=== PATIENT | female | born 1960 | race Caucasian/White ===

== ENCOUNTER 2017-06-27 14:20 | Emergency (ER) | payer MEDICAID ==
[2017-06-27 18:17] LABS: BILIRUBIN,URINE NEGATIVE (NEGATIVE)
[2017-06-27 18:20] LABS: UA w/ MICROSCOPIC CHARGE YES
[2017-06-27 18:24] LABS: BASOPHILS % (AUTO) 0.3 %; EOSINOPHILS # (AUTO) 0.2 10^3/uL (0.0-0.7); EOSINOPHILS % (AUTO) 4.3 %; HCT - HEMATOCRIT 40.8 % (37.0-47.0); HGB - HEMOGLOBIN 13.7 g/dL (12.0-16.0); LYMPHOCYTES # (AUTO) 1.5 10^3/uL (1.5-3.5); LYMPHOCYTES % (AUTO) 29.7 %; MEAN CORPUSCULAR HEMOGLOBIN 30.8 pg (27.0-31.0); MEAN CORPUSCULAR HGB CONC 33.5 g/dL (32.0-36.0); MEAN PLATELET VOLUME 7.8 fL (7.9-10.8); MONOCYTES # (AUTO) 0.2 10^3/uL (0.0-1.0); MONOCYTES % (AUTO) 4.9 %; NEUTROPHILS % (AUTO) 60.8 %; RED BLOOD COUNT 4.43 10^6/uL (4.20-5.40); RED CELL DISTRIBUTION WIDTH 13.3 % (12.0-15.0)
[2017-06-27 18:33] LABS: UR CULTURE IF IND NOT INDICATED
[2017-06-27] MEDS ORDERED: SODIUM CHLORIDE 0.9% 1,000 ML IV ONE (19:19)
[2017-06-27] MEDS ORDERED: ONDANSETRON 4 MG/2 ML VIAL IVP STA (19:19)
[2017-06-27] MEDS ORDERED: KETOROLAC 60 MG/2 ML VIAL IVP STA (19:19)
[2017-06-27] MEDS ORDERED: KETOROLAC 30 MG/ML VIAL ONE (19:32)
[2017-06-27] MEDS ORDERED: ONDANSETRON 4 MG/2 ML VIAL ONE (19:32)
[2017-06-27 19:56] LABS: ALBUMIN/GLOBULIN RATIO 1.2 (1.0-2.2); BILIRUBIN,TOTAL 0.9 mg/dL (0.2-1.0); CALCIUM 10.7 mg/dL (8.5-10.3); CREATININE 0.8 mg/dL (0.4-1.0); POTASSIUM 4.1 mmol/L (3.5-5.0); TOTAL PROTEIN 8.1 g/dL (6.7-8.2)
[2017-06-27] MEDS ORDERED: IOPAMIDOL-300 100 ML VIAL IVP ONE (20:53)
--- NOTE | 2017-06-27 21:18 | CT Preliminary Report ---
Exam: CT Abdomen/Pelvis W/ IMPRESSION: 1. Anterior abdominal wall hernia with prominent bowel involvement, but no definite obstruction at th is time. 2. Bilateral inguinal hernias with fat involvement only. 3. Other chronic or incidental findings. [facility] SITE ID: [id number]
--- NOTE | 2017-06-27 21:21 | CT Report ---
EXAM: CT ABDOMEN AND PELVIS EXAM DATE: 06/27/2017 08:41 PM. CLINICAL HISTORY: Lower abd. pain., left right. COMPARISONS: 05/03/2012. TECHNIQUE: Routine helical CT imaging was performed through the abdomen and pelvis. IV contrast: 100 cc Isovue-300. Enteric contrast: No. Reconstructions: Coronal and sagittal. In accordance with CT protocol optimization, one or more of the following dose reduction techniques w ere utilized for this exam: automated exposure control, adjustment of mA and/or KV based on patient s ize, or use of iterative reconstructive technique. FINDINGS: Lung Bases: Unremarkable. Liver: Small calcified granuloma. Otherwise unremarkable. Gallbladder/Bile Ducts: Unremarkable. Spleen: Calcified granulomata. Small accessory spleen. Otherwise unremarkable. Pancreas: Diffuse fatty infiltration. Adrenal Glands: Bilateral adrenal adenomata. Kidneys: Normal. No masses or hydronephrosis. Peritoneal Cavity/Bowel: Anterior abdominal wall hernia in the midline with opening measuring about 6 .7 cm and hernia sac measuring about 12 x 7 cm. Multiple loops of bowel measure the hernia, but no di lation or other evidence of complication at this time. Postoperative changes. No free fluid, free air , or lymphadenopathy. The appendix is well visualized and normal. Pelvic Organs: Normal. The bladder and visualized pelvic organs are within normal limits. Vasculature: No aneurysms or other significant abnormality. Bones: Transitional vertebra with bilateral pseudarthrosis. Other: Bilateral small inguinal hernias with fat involvement only. IMPRESSION: 1. Anterior abdominal wall hernia with prominent bowel involvement, but no definite obstruction at th is time. 2. Bilateral inguinal hernias with fat involvement only. 3. Other chronic or incidental findings. [facility] Referring Provider Line: [phone] SITE ID: [id number]
--- NOTE | 2017-06-27 21:38 | ED Physician Documentation ---
PD HPI ABD PAIN - Stated complaint Stated Complaint: FEMALE - Chief complaint Chief Complaint: Abd Pain - History obtained from History obtained from: Patient - History of Present Illness Timing - onset: How many days ago (several) Timing - details: Waxing and waning Associated symptoms: Fever (Intermittently for one week.), Nausea (mild), Constipation. No: Vomiting, Diarrhea, Dysuria Similar symptoms before: Has not had sx before - Additional information Additional information: The patient is a 56-year-old female who presents stating she thinks her uterus fell out. She states her uterus prolapsed 3 days ago, but she pushed it back up into place, but then today it fell out completely. She brought to the emergency department with her a mass wrapped in a towel that she shows me. She reports having mild lower abdominal pain that has been waxing and waning. She reports fever intermittently for the past week. She reports mild nausea, without vomiting or diarrhea. She has had constipation for the past 2 weeks, but did have a bowel movement today. She denies history of similar symptoms in the past. Her past surgical history is significant for ventral hernia repairs 3. Review of Systems Constitutional: reports: Fever (Intermittently for the past week.) Nose: denies: Congestion Throat: denies: Sore throat Cardiac: denies: Chest pain / pressure Respiratory: denies: Dyspnea, Cough GI: reports: Abdominal Pain, Nausea (mild), Constipation. denies: Vomiting : reports: LMP (postmenopausal). denies: Dysuria Skin: denies: Rash Musculoskeletal: reports: Back pain (chronic mild low back pain) Neurologic: denies: Focal weakness, Syncope, Headache PD PAST MEDICAL HISTORY - Past Medical History Past Medical History: Yes Cardiovascular: None Respiratory: None Neuro: None Endocrine/Autoimmune: None Psych: Depression, Anxiety - Past Surgical History Past Surgical History: Yes General: Other (Ventral hernia repair 3) - Present Medications Home Medications: Ambulatory Orders Medication Instructions Recorded Confirmed HYDROcod/ACETAM 5/325 [Lolo 5/325] 1 - 2 ea PO Q6H PRN #15 tablet 06/27/17 - Allergies Allergies/Adverse Reactions: Allergies Allergy/AdvReac Type Severity Reaction Status Date / Time No Known Drug Allergies Allergy Verified 11/28/14 13:30 - Social History Does the pt smoke?: No Smoking Status: Never smoker Does the pt have substance abuse?: No - POLST Patient has POLST: No PD ED PE NORMAL - Vitals Vital signs reviewed: Yes (Mild hypertension initially.) - General General: Alert and oriented X 3, Other (obese) - HEENT HEENT: Atraumatic, Pharynx benign - Neck Neck: No adenopathy, No JVD - Cardiac Cardiac: RRR, No murmur - Respiratory Respiratory: No respiratory distress, Clear bilaterally - Abdomen Abdomen: Normal bowel sounds, Soft, Non tender - Female Female : Entry Level Paralegal present - Back Back: No CVA TTP - Derm Derm: No rash - Extremities Extremities: No calf tenderness / cord - Neuro Neuro: Alert and oriented X 3, No motor deficit, Normal speech Results - Vitals Vitals: Oxygen O2 Source Room air - Labs Labs: Laboratory Tests 06/27/17 06/27/17 06/27/17 18:00 18:15 18:15 WBC 5.0 RBC 4.43 Hgb 13.7 Hct 40.8 MCV 92.0 MCH 30.8 MCHC 33.5 RDW 13.3 Plt Count 190 MPV 7.8 L Neut # 3.0 Lymph # 1.5 [place] # 0.2 Eos # 0.2 Baso # 0.0 Absolute Nucleated RBC 0.00 Nucleated RBCs 0.0 Sodium 138 Potassium 4.1 Chloride 107 Carbon Dioxide 26 Anion Gap 5.0 L BUN 17 Creatinine 0.8 Estimated GFR (MDRD) 75 L Glucose 102 H Calcium 10.7 H Total Bilirubin 0.9 AST 28 ALT 25 Alkaline Phosphatase 70 Total Protein 8.1 Albumin 4.4 Globulin 3.7 Albumin/Globulin Ratio 1.2 Lipase 20 L Urine Color YELLOW Urine Clarity SL. CLOUDY Urine pH 7.0 Ur Specific [place] 1.020 Urine Protein NEGATIVE Urine Glucose (UA) NEGATIVE Urine Ketones NEGATIVE Urine Occult Blood MODERATE H Urine Nitrite NEGATIVE Urine Bilirubin NEGATIVE Urine Urobilinogen 1 (NORMAL) Ur Leukocyte Esterase NEGATIVE Urine RBC 11-25 H Urine WBC 6-10 H Ur Squamous Epith Cells MANY Squamous H Urine Bacteria Few Ur Microscopic Review INDICATED Urine Culture Comments NOT INDICATED - Rads (name of study) CT abd/pelvis w/ Radiology: Prelim report reviewed, EMP read contemporaneously, See rad report ( Anterior abdominal wall hernia with prominent bowel involvement, but no definite obstruction at this time. Bilateral inguinal hernias with fat involvement only. Other chronic or incidental findings.) PD MEDICAL DECISION MAKING - ED course Complexity details: reviewed results, re-evaluated patient, considered differential, d/w patient ED course: The patient's presentation is significant for passage of a large hemorrhagic uterine coagulum. Pelvic exam reveals no ongoing vaginal bleeding, and her CBC is normal. Urinalysis is negative. CT scan of the abdomen and pelvis reveals a large ventral hernia with bowel involvement, but without obstruction. The CT scan also reveals bilateral inguinal hernias with fat involvement. Treatment in the emergency department included administration of ketorolac 30 mg IV, and Zofran 4 mg IV. She is being discharged with prescription for Vicodin, 15 tablets. I discussed with her the results of her workup, the importance of outpatient follow-up, as well as potentially worrisome signs or symptoms that should prompt reevaluation in the emergency department. Departure - Departure Disposition: 01 Home, Self Care Clinical Impression: Vagina bleeding Abdominal pain Qualifiers: Abdominal location: lower abdomen, unspecified Qualified Code(s): R10.30 - Lower abdominal pain, unspecified Ventral hernia Qualifiers: Obstruction and gangrene presence: without obstruction or gangrene Qualified Code(s): K43.9 - Ventral hernia without obstruction or gangrene Condition: Stable Instructions: ED Bleed Irregular Vaginal, ED Hernia Inguinal Prescriptions: HYDROcod/ACETAM 5/325 [Lolo 5/325] 1 - 2 ea PO Q6H PRN #15 tablet PRN Reason: Pain Comments: Drink plenty of fluids. You can use Vicodin as prescribed if needed for pain. Follow-up with your primary physician within 1-2 weeks. Call to schedule appointment. Consider follow-up with a tool repairer. Return to the emergency department if you develop increasing vaginal bleeding, increasing abdominal pain, or otherwise worsening symptoms. Discharge Date/Time: 06/27/17 21:56
[2017-06-27 21:55] VITALS: BP 141/69
== END 2017-06-27 21:56 | disposition home or self-care (01) ==
LOC: ED 14:20
DX: N93.9 Abnormal uterine and vaginal bleeding, unspecified (principal); R10.30 Lower abdominal pain, unspecified; K43.9 Ventral hernia without obstruction or gangrene; K40.20 Bilateral inguinal hernia, without obstruction or gangrene, not specified as recurrent
CPT/HCPCS: 36415; 74177; 80053; 81001; 83690; 85025; 96361; 96374; 96375; 99283; 99284; Q9967; 81003; 87086

== ENCOUNTER 2017-09-11 12:58 | Outpatient (CLI) | payer MEDICAID | END 2017-09-11 12:59 | disposition home or self-care (01) | LOC: DI 12:58 | PROVIDERS: ATTEND Family Medicine | DX: Z53.9 Procedure and treatment not carried out, unspecified reason (principal) ==

== ENCOUNTER 2018-01-01 14:13 | Outpatient (CLI) | payer MEDICAID ==
--- NOTE | 2018-01-01 16:42 | Ultrasound Report ---
DATE OF SERVICE: 01/01/2018 ULTRASOUND OF RIGHT BREAST: 01/01/2018 CLINICAL INDICATION: Palpable abnormality. TECHNIQUE: Real-time scanning was performed with practice representative static images obtained. FINDINGS: Ultrasound of the palpable abnormality identified by the patient in the right axilla and the 4 o'clock position of the right breast was performed. Unremarkable parenchymal lobules are present. No discrete solid or cystic mass is identified. No sonographically suspicious findings are seen. IMPRESSION: NEGATIVE EXAMINATION. RECOMMENDATION: ROUTINE ANNUAL SCREENING UNLESS OTHERWISE CLINICALLY INDICATED. BIRADS CATEGORY 1-NEGATIVE. TD: 01/01/2018 16:41
--- NOTE | 2018-01-01 16:52 | Mammography Report ---
DATE OF SERVICE: 01/01/2018 DIGITAL DIAGNOSTIC BILATERAL MAMMOGRAM: 01/01/2018 CLINICAL INDICATION: Palpable abnormality right breast. This is the patient's baseline mammogram. TECHNIQUE: Bilateral CC and MLO views, right true and laterally exaggerated craniocaudal views. At the time of the mammogram, the patient only identified a palpable abnormality in the right axilla, which is where the marker was placed. The patient did not mention the palpable abnormality at the 4 o'clock position of the right breast until the subsequent ultrasound of the same day. FINDINGS: The breasts demonstrate scattered fibroglandular densities bilaterally. Intramammary lymph nodes are present. No suspicious masses, clustered microcalcifications, or regions of architectural distortion are identified. Specifically, no mammographic abnormality is appreciated in the right axillary tail or at the 4 o'clock position of the right breast. Please also refer to right breast ultrasound of the same day. IMPRESSION: BENIGN FINDINGS. RECOMMENDATION: ROUTINE ANNUAL SCREENING UNLESS OTHERWISE CLINICALLY INDICATED. BIRADS CATEGORY 2-BENIGN FINDINGS. STANDARD QUALIFYING STATEMENTS: 1. This examination was reviewed with the aid of Computer-Aided Detection (CAD). 2. A negative or benign imaging report should not delay biopsy if clinically suspicious findings are present. Consider surgical consultation if warranted. More than 5% of cancers are not identified by imaging. 3. Dense breasts may obscure an underlying neoplasm. TD: 01/01/2018 16:51
== END 2018-01-01 14:14 | disposition home or self-care (01) ==
LOC: DI 14:13
PROVIDERS: ATTEND Family Medicine
DX: N63.11 Unspecified lump in the right breast, upper outer quadrant (principal)
CPT/HCPCS: 76642; 77066

== ENCOUNTER 2021-08-17 10:42 | Emergency (ER) | payer MEDICAID ==
--- NOTE | 2021-08-17 11:23 | ED Physician Documentation ---
PD HPI ABD PAIN - Stated complaint Stated Complaint: WOUND ON ABD - Chief complaint Chief Complaint: Abd Pain - History obtained from History obtained from: Patient - Additional information Additional information: 60-year-old woman with history of complicated ventral hernia repairs x4 has had an active hernia for a year or so but has not been able to see a surgeon due to Covid. Now with a wound on the anterior abdominal wall with drainage for a week. No vomiting or abnormal bowel movements. No fevers. Review of Systems Ten Systems: 10 systems reviewed and negative Constitutional: reports: Reviewed and negative Cardiac: reports: Reviewed and negative Respiratory: reports: Reviewed and negative PD PAST MEDICAL HISTORY - Past Medical History Cardiovascular: None Respiratory: None Endocrine/Autoimmune: None Psych: Depression, Anxiety - Past Surgical History Past Surgical History: Yes General: Other (Ventral hernia repair 3) - Present Medications Home Medications: Ambulatory Orders Medication Instructions Recorded Confirmed Amox/Clav 875/125 [Augmentin] 1 each PO Q12H #20 tablet 08/17/21 Bacitracin Zinc Oint 1 applic TOP BID #1 gm 08/17/21 - Allergies Allergies/Adverse Reactions: Allergies Allergy/AdvReac Type Severity Reaction Status Date / Time No Known Drug Allergies Allergy Verified 08/17/21 10:57 - Social History Does the pt smoke?: No Smoking Status: Never smoker Does the pt have substance abuse?: No - POLST Patient has POLST: No PD ED PE NORMAL - Vitals Vital signs reviewed: Yes - General General: Alert and oriented X 3, No acute distress - HEENT HEENT: PERRL, EOMI - Neck Neck: Supple, no meningeal sign, No bony TTP - Cardiac Cardiac: RRR, No murmur - Respiratory Respiratory: No respiratory distress, Clear bilaterally - Abdomen Abdomen: Other (Somewhat distended abdomen without diffuse tenderness. She has a area of skin breakdown mid anterior abdominal wall measuring about 4 cm in diameter. There is material in the wound, unclear if it represents granulation tissue or subcutaneous fat or something else.) - Back Back: No CVA TTP, No spinal TTP - Derm Derm: Normal color, Warm and dry - Extremities Extremities: No edema, No calf tenderness / cord - Neuro Neuro: Alert and oriented X 3, Normal speech Results - Vitals Vitals: Vital Signs - 24 hr 08/17/21 08/17/21 08/17/21 10:53 11:39 13:03 Temperature 36.9 C Heart Rate 93 70 64 Respiratory 20 13 15 Rate Blood Pressure 152/77 H 118/74 117/63 O2 Saturation 99 100 100 08/17/21 13:43 Temperature 36.2 C L Heart Rate 76 Respiratory 14 Rate Blood Pressure 125/84 H O2 Saturation 99 Oxygen O2 Source Room air - Labs Labs: Laboratory Tests 08/17/21 08/17/21 08/17/21 11:31 11:31 11:31 WBC 3.6 L RBC 4.59 Hgb 14.0 Hct 43.6 MCV 95.0 MCH 30.5 MCHC 32.1 RDW 13.4 Plt Count 175 MPV 9.7 Neut # (Auto) 2.3 Lymph # (Auto) 1.0 L [place] # (Auto) 0.2 Eos # (Auto) 0.1 Baso # (Auto) 0.0 Absolute Nucleated RBC 0.00 Nucleated RBC % 0.0 PT 12.2 INR 1.1 Sodium 139 Potassium 3.8 Chloride 105 Carbon Dioxide 25 Anion Gap 9.0 BUN 23 H Creatinine 0.8 Estimated GFR (MDRD) 74 L Glucose 114 H Calcium 10.4 H - Rads (name of study) CT A/P Radiology: EMP read contemporaneously PD MEDICAL DECISION MAKING - ED course ED course: 60-year-old woman with complicated ventral hernia that is not with signs of infarction or obstruction but does have some skin breakdown. CT done and labs. Case discussed by phone with Dr. Osborne our on-call surgeon who viewed the images as well and will see her in follow-up but plans to refer her to a tertiary center for definitive repair. Patient had ancillary complaints of dental pain and facial swelling from the right mandible. On exam there she does have generally poor dentition with a large cavity on the right mandible with tenderness but no facial swelling but she does have right reactive right cervical adenopathy and I will prescribe some antibiotics for that. Departure - Departure Disposition: 01 Home, Self Care Clinical Impression: Ventral hernia, Pain, dental Condition: Good Record reviewed to determine appropriate education?: Yes Instructions: ED Dental Abscess Facial Cellulitis Follow-Up: Barry Osborne MD [Provider Admit Priv/Credential] - Prescriptions: Amox/Clav 875/125 [Augmentin] 1 each PO Q12H #20 tablet Bacitracin Zinc Oint 1 applic TOP BID #1 gm Comments: Follow-up with Dr. Osborne, call his office for an appointment. He will "quarterback" referral to a tertiary center for hernia repair. Also important to follow-up with your dentist as soon as possible. Prescription sent electronically to [facility] pharmacy. For the wound on your abdomen, you can wash with soap and water and then apply the bacitracin ointment and a nonstick dressing. Discharge Date/Time: 08/17/21 13:49
[2021-08-17] MEDS ORDERED: IOPAMIDOL-300 100 ML VIAL ONE (11:32)
[2021-08-17] MEDS ORDERED: IOVERSOL 320 50 ML VIAL ONE (11:32)
[2021-08-17 11:38] LABS: BASOPHILS % (AUTO) 0.3 %; EOSINOPHILS # (AUTO) 0.1 10^3/uL (0.0-0.7); EOSINOPHILS % (AUTO) 2.5 %; HCT - HEMATOCRIT 43.6 % (37.0-47.0); LYMPHOCYTES % (AUTO) 28.3 %; MEAN CORPUSCULAR HEMOGLOBIN 30.5 pg (27.0-31.0); MEAN CORPUSCULAR HGB CONC 32.1 g/dL (32.0-36.0); MEAN PLATELET VOLUME 9.7 fL (7.9-10.8); MONOCYTES # (AUTO) 0.2 10^3/uL (0.0-1.0); MONOCYTES % (AUTO) 4.4 %; NEUTROPHILS # (AUTO) 2.3 10^3/uL (1.5-6.6); NEUTROPHILS % (AUTO) 64.2 %; PLT - PLATELET COUNT 175 10^3/uL (130-450); RED BLOOD COUNT 4.59 10^6/uL (4.20-5.40); RED CELL DISTRIBUTION WIDTH 13.4 % (12.0-15.0); WHITE BLOOD COUNT 3.6 x10^3/uL (4.8-10.8)
[2021-08-17 11:44] LABS: INR 1.1 (0.8-1.2); PT - PROTHROMBIN TIME 12.2 secs (9.9-12.6)
[2021-08-17 11:46] LABS: CALCIUM 10.4 mg/dL (8.5-10.3); CREATININE 0.8 mg/dL (0.4-1.0); POTASSIUM 3.8 mmol/L (3.5-5.0)
[2021-08-17] MEDS ORDERED: IOVERSOL 320 50 ML VIAL PO ONE (13:23)
[2021-08-17] MEDS ORDERED: IOPAMIDOL-300 100 ML VIAL IVP ONE (13:23)
[2021-08-17 13:46] VITALS: BP 125/84
--- NOTE | 2021-08-17 13:47 | CT Report ---
PROCEDURE: Abdomen/Pelvis W INDICATIONS: IV and PO, abd pain, ruptured hernia CONTRAST: IV CONTRAST: Isovue 300 ml: 100 PO CONTRAST: Optiray 320 ml50 TECHNIQUE: After the administration of contrast, 5 mm thick sections acquired from the diaphragms to the sym physis. 5 mm thick coronal and sagittal reformats were acquired. For radiation dose reduction, the following was used: automated exposure control, adjustment of mA and/or kV according to patient size . COMPARISON: None. FINDINGS: Image quality: Excellent. ABDOMEN: Lung bases: Lung bases are clear. Heart size is normal. Solid organs: Spleen is enlarged at 14.1 cm 22 cm, previously 13 cm.. Small splenic granuloma remains unchanged. Hepatic fatty infiltration and small hepatic calcified granuloma noted, stable. Gallbladd er unremarkable Biliary system is non dilated. Pancreas enhances normally. Low-density bilateral ad renal nodules again noted, stable from the prior. Kidneys demonstrate normal size and enhancement, w ithout hydronephrosis. Peritoneum and bowel: Large ventral hernia present containing bowel has increased in size from the p rior exam. Ventral hernia sac now measures 22 cm in diameter, previously 13 cm. Neck of the hernia me asures 6.7 cm in diameter. There is evidence of prior hernia repair just inferior to the current gary ia with surgical clips, stable from the prior. Bowel loops demonstrate normal wall thickness and amber luke. No free fluid or air. Nodes and vessels: No retroperitoneal or mesenteric adenopathy by size criteria. Aorta and inferior vena cava are normal in size. Atherosclerotic vascular calcification noted involving the aorta and splenic loraine. Miscellaneous: No ventral hernias. PELVIS: Genitourinary: Bladder wall thickness is normal. Surgical clips noted associated with both fallopia n tubes, stable. Miscellaneous: Tiny bilateral inguinal hernias containing fat without bowel involvement, stable from the prior Bones: No suspicious bony lesions. No vertebral body compression fractures. Vertebral transitional anatomy again noted. IMPRESSION: 1. Large ventral hernia has increased in size compared to the prior exam now measuring 22 cm, previou sly 13 cm. 2. Stable bilateral adrenal adenomas, hepatic fatty infiltration and small bilateral inguinal hernias containing fat without bowel involvement. Reviewed by: Morteza Newby MD on 08/17/2021 12:45 PM [facility] Approved by: Morteza Newby MD on 08/17/2021 12:45 PM AKDT Station ID: [id number]
== END 2021-08-17 13:49 | disposition home or self-care (01) ==
LOC: ED 10:42
DX: K43.9 Ventral hernia without obstruction or gangrene (principal); K08.89 Other specified disorders of teeth and supporting structures
CPT/HCPCS: 36415; 74177; 80048; 85025; 85610; 99283; 99284; Q9967

== ENCOUNTER 2022-11-08 09:36 | Emergency (ER) | payer MEDICAID ==
[2022-11-08] MEDS ORDERED: ONDANSETRON 4 MG/2 ML VIAL IVP STA ×2 (10:01→13:01)
[2022-11-08] MEDS ORDERED: SODIUM CHLORIDE 0.9% 1,000 ML IV STA ×2 (10:01→13:29)
[2022-11-08] MEDS ORDERED: MORPHINE 2 MG/ML CARPUJECT IVP STA ×2 (10:01→13:01)
[2022-11-08] MEDS ORDERED: iohexoL-300 100 ML VIAL ONE (10:09)
[2022-11-08 10:21] LABS: BASOPHILS % (AUTO) 0.3 %; EOSINOPHILS # (AUTO) 0.1 10^3/uL (0.0-0.7); EOSINOPHILS % (AUTO) 0.7 %; HCT - HEMATOCRIT 47.7 % (37.0-47.0); HGB - HEMOGLOBIN 15.2 g/dL (12.0-16.0); LYMPHOCYTES # (AUTO) 0.7 10^3/uL (1.5-3.5); LYMPHOCYTES % (AUTO) 10.5 %; MEAN CORPUSCULAR HEMOGLOBIN 29.3 pg (27.0-31.0); MEAN CORPUSCULAR HGB CONC 31.9 g/dL (32.0-36.0); MEAN CORPUSCULAR VOLUME 92.1 fL (81.0-99.0); MEAN PLATELET VOLUME 9.6 fL (7.9-10.8); MONOCYTES # (AUTO) 0.2 10^3/uL (0.0-1.0); MONOCYTES % (AUTO) 2.2 %; NEUTROPHILS # (AUTO) 5.8 10^3/uL (1.5-6.6); NEUTROPHILS % (AUTO) 86.2 %; PLT - PLATELET COUNT 200 10^3/uL (130-450); RED BLOOD COUNT 5.18 10^6/uL (4.20-5.40); RED CELL DISTRIBUTION WIDTH 13.3 % (12.0-15.0); WHITE BLOOD COUNT 6.8 x10^3/uL (4.8-10.8)
--- NOTE | 2022-11-08 10:33 | ED Physician Documentation ---
PD HPI ABD PAIN - Stated complaint Stated Complaint: N/V, ABD/BACK PX - Chief complaint Chief Complaint: Abd Pain - History obtained from History obtained from: Patient - Additional information Additional information: Patient is a 62-year-old female with a history of multiple prior hernia repairs and small bowel obstructions presenting for evaluation of abdominal pain and back pain that started yesterday evening with associated nausea and vomiting.The pain is localized to the area of the hernia and upper abdomen. She reports that the hernia is always present and never fully reduces. She does have a redness to the bottom portion of the hernia which she has been trying to treat at home.Her last bowel movement was yesterday and was a small amount. She is not passing gas. She has required Surgeries for prior small bowel obstructions. She reports those were at [facility].She does not otherwise take medications including no blood thinners. She denies recently being ill. Taken from Dr. Armstrong's note 12/04/21 ( Surgery) 2007: The patient underwent SBR and mesh hernia repair for an umbilical strangulated hernia at [facility] in [place], [place]. 2008: Mesh was recalled, patient had the mesh removed. [id number]: Hernia recurred 05/04/2012: Presented unplanned to [facility] in [place] with incarcerated ventral hernia and underwent: reduction of incarcerated ventral hernia, lysis of adhesions, temporary, abdominal closure with VAC pack. 05/07/2012: reopening of laparotomy, exploratory laparotomy, component separation of abdominal wall musculature for primary fascial repair of abdominal wall by Dr. Grande at [facility] 2020: Patient is unsure of when the hernia recurred, but has been present for many years. Small wound overlying ventral hernia has been present for about a year and is slowly growing, now the size of a half-dollar. 08/17/21: Patient presented to [facility] ED with worsening abdominal pain, CT imaging showing recurrence of ventral hernia, w/o evidence obstruction. 09/07/21: Evaluated by Dr. Barry Osborne, determined case required management at [facility], referred to [facility] General Surgery Review of Systems Constitutional: denies: Fever Cardiac: denies: Chest pain / pressure Respiratory: denies: Dyspnea GI: reports: Abdominal Pain, Nausea, Vomiting. denies: Diarrhea : denies: Dysuria Musculoskeletal: reports: Back pain Neurologic: denies: Headache PD PAST MEDICAL HISTORY - Past Medical History Past Medical History: Yes Cardiovascular: None Respiratory: None Neuro: None Endocrine/Autoimmune: None GI: Other TANK OPERATOR: None : None HEENT: None Psych: Depression, Anxiety Musculoskeletal: None Derm: Other - Past Surgical History Past Surgical History: Yes General: Other - Present Medications Home Medications: Ambulatory Orders Medication Instructions Recorded Confirmed Amox/Clav 875/125 [Augmentin] 1 each PO Q12H #20 tablet 08/17/21 Bacitracin Zinc Oint 1 applic TOP BID #1 gm 08/17/21 Bacitracin Zinc Oint 2 applic TOP BID #1 gm 07/21/22 Magnesium Citrate 147 ml PO Q8H PRN #296 ml 07/21/22 - Allergies Allergies/Adverse Reactions: Allergies Allergy/AdvReac Type Severity Reaction Status Date / Time No Known Drug Allergies Allergy Verified 07/21/22 09:12 - Social History Does the pt smoke?: No Smoking Status: Never smoker Does the pt drink ETOH?: No Does the pt have substance abuse?: No - Immunizations Immunizations are current?: Yes - POLST Patient has POLST: No PD ED PE NORMAL - General General: Alert and oriented X 3, No acute distress, Well developed/nourished - HEENT HEENT: Atraumatic, Moist mucous membranes, Pharynx benign - Neck Neck: Supple, no meningeal sign - Cardiac Cardiac: RRR, No murmur - Respiratory Respiratory: No respiratory distress, Clear bilaterally - Abdomen Abdomen: Soft, Other (Large ventral wall hernia with tenderness,pt does not tolerate attempts at reducing the hernia due to pain; Redness present to the Skin folds below the hernia area). No: Normal bowel sounds (Hypoactive), Non tender - Derm Derm: Warm and dry Results - Vitals Vitals: Vital Signs - 24 hr 11/08/22 11/08/22 11/08/22 09:50 09:53 11:53 Temperature 37 C Heart Rate 77 78 88 Respiratory 16 Rate Blood Pressure 119/107 H 166/92 H O2 Saturation 99 96 97 11/08/22 11/08/22 13:00 15:00 Temperature 36.6 C 36.6 C Heart Rate 71 63 Respiratory 16 16 Rate Blood Pressure 128/71 115/73 O2 Saturation 100 100 Oxygen O2 Source Room air - EKG (time done) 1006 Rate: Rate (enter#) (73) Rhythm: NSR Intervals: No: Prolonged QT Ischemia: No: ST elevation c/w ischemia - Labs Labs: Laboratory Tests 11/08/22 11/08/22 11/08/22 10:05 10:12 10:12 WBC 6.8 RBC 5.18 Hgb 15.2 Hct 47.7 H MCV 92.1 MCH 29.3 MCHC 31.9 L RDW 13.3 Plt Count 200 MPV 9.6 Neut # (Auto) 5.8 Lymph # (Auto) 0.7 L [place] # (Auto) 0.2 Eos # (Auto) 0.1 Baso # (Auto) 0.0 Absolute Nucleated RBC 0.00 Nucleated RBC % 0.0 Sodium 138 Potassium 4.0 Chloride 104 Carbon Dioxide 25 Anion Gap 9.0 BUN 17 Creatinine 0.8 Estimated GFR (MDRD) 73 L Glucose 130 H Lactic Acid Calcium 10.9 H Total Bilirubin 1.1 H AST 25 ALT 28 Alkaline Phosphatase 79 Total Protein 8.6 H Albumin 4.5 Globulin 4.1 Albumin/Globulin Ratio 1.1 Lipase 25 Nasal Adenovirus (PCR) NOT DETECTED Nasal B. parapertussis DNA (PCR) NOT DETECTED Nasal Coronavir 229E PCR NOT DETECTED Nasal Coronavir HKU1 PCR NOT DETECTED Nasal Coronavir NL63 PCR NOT DETECTED Nasal Coronavir OC43 PCR NOT DETECTED Nasal Enterovir/Rhinovir PCR NOT DETECTED Nasal Influenza B PCR NOT DETECTED Nasal Influenza A PCR NOT DETECTED Nasal Parainfluen 1 PCR NOT DETECTED Nasal Parainfluen 2 PCR NOT DETECTED Nasal Parainfluen 3 PCR NOT DETECTED Nasal Parainfluen 4 PCR NOT DETECTED Nasal RSV (PCR) NOT DETECTED Nasal B.pertussis DNA PCR NOT DETECTED Nasal C.pneumoniae (PCR) NOT DETECTED Hola Human Metapneumo PCR NOT DETECTED Nasal M.pneumoniae (PCR) NOT DETECTED Nasal SARS-CoV-2 (PCR) NOT DETECTED 11/08/22 10:12 WBC RBC Hgb Hct MCV MCH MCHC RDW Plt Count MPV Neut # (Auto) Lymph # (Auto) [place] # (Auto) Eos # (Auto) Baso # (Auto) Absolute Nucleated RBC Nucleated RBC % Sodium Potassium Chloride Carbon Dioxide Anion Gap BUN Creatinine Estimated GFR (MDRD) Glucose Lactic Acid 1.1 Calcium Total Bilirubin AST ALT Alkaline Phosphatase Total Protein Albumin Globulin Albumin/Globulin Ratio Lipase Nasal Adenovirus (PCR) Nasal B. parapertussis DNA (PCR) Nasal Coronavir 229E PCR Nasal Coronavir HKU1 PCR Nasal Coronavir NL63 PCR Nasal Coronavir OC43 PCR Nasal Enterovir/Rhinovir PCR Nasal Influenza B PCR Nasal Influenza A PCR Nasal Parainfluen 1 PCR Nasal Parainfluen 2 PCR Nasal Parainfluen 3 PCR Nasal Parainfluen 4 PCR Nasal RSV (PCR) Nasal B.pertussis DNA PCR Nasal C.pneumoniae (PCR) Hola Human Metapneumo PCR Nasal M.pneumoniae (PCR) Nasal SARS-CoV-2 (PCR) PD MEDICAL DECISION MAKING - ED course Complexity details: reviewed results, re-evaluated patient, d/w patient ED course: Patient presenting for evaluation of abdominal hernia with pain and vomiting. Vital signs are stable and labs are reviewed.Her hernia is soft but not Necessarily reducible. CT scan is concerning for small bowel obstruction. I did consult with general surgery who evaluated the patient. He does not feel that the hernia is incarcerated. He recommends treating her SBO nonoperatively at this time as she is a very complex surgical patient. He does recommend placing her on the wait list at [facility] in the event that she needs surgery is she would be a complicated surgical case that would not be appropriate for this facility. Patient will remain in the emergency department. I have spoken to the transfer center but have not heard back from general surgery yet. Patient signed out to oncoming provider at shift change. She will continue to board in the emergency department until a bed is available. 1330 - Dr. Chinchilla, General Surgery has seen the patient.She is a very complex patient and has had prior surgeries at [facility] In regards to her hernia. He does not feel that she would be a good surgical candidate to keep that would be. He recommends at this time and trying to manage her nonoperatively with nasogastric tube, IV fluids and n.p.o. However he does recommend trying to transfer the patient Because surgery here would be too complicated in this patient. Departure - Departure Disposition: 66 [facility] DC/Xfer Clinical Impression: SBO (small bowel obstruction), Ventral hernia Condition: Stable
[2022-11-08 10:37] LABS: ALBUMIN 4.5 g/dL (3.2-5.5); ALBUMIN/GLOBULIN RATIO 1.1 (1.0-2.2); BILIRUBIN,TOTAL 1.1 mg/dL (0.2-1.0); CALCIUM 10.9 mg/dL (8.5-10.3); CREATININE 0.8 mg/dL (0.4-1.0); TOTAL PROTEIN 8.6 g/dL (6.7-8.2)
[2022-11-08 11:15] LABS: CORONAVIRUS 229E-RESP PCR NOT DETECTED; CORONAVIRUS HKU1-RESP PCR NOT DETECTED
[2022-11-08 11:16] LABS: B. PARAPERTUSSIS- RESP PCR PAN NOT DETECTED; B. PERTUSSIS- RESP PCR PANEL NOT DETECTED; C. PNEUMONIAE- RESP PCR PANEL NOT DETECTED; CORONAVIRUS NL63-RESP PCR NOT DETECTED; CORONAVIRUS OC43-RESP PCR NOT DETECTED; HUMAN METAPNEUMOVIRUS NOT DETECTED; INFLUENZA A- RESP PCR PANEL NOT DETECTED; INFLUENZA B - RESP PCR PANEL NOT DETECTED; M. PNEUMONIAE- RESP PCR PANEL NOT DETECTED; PARAINFLUENZA VIRUS 1 NOT DETECTED; PARAINFLUENZA VIRUS 2 NOT DETECTED; PARAINFLUENZA VIRUS 3 NOT DETECTED; PARAINFLUENZA VIRUS 4 NOT DETECTED; RHINOVIRUS/ENTEROVIRUS NOT DETECTED; RSV- RESP PCR PANEL NOT DETECTED; SARS-CoV-2 -RESP PCR PANEL NOT DETECTED
--- NOTE | 2022-11-08 12:32 | CT Report ---
PROCEDURE: ABDOMEN/PELVIS W INDICATIONS: large ventral wall hernia/vomiting CONTRAST: 100ml Omnipaque 300 TECHNIQUE: After the administration of intravenous contrast, 5 mm thick sections acquired from the diaphragms to the symphysis. 5 mm thick coronal and sagittal reformats were acquired. For radiation dose reducti on, the following was used: automated exposure control, adjustment of mA and/or kV according to joseph ent size. COMPARISON: CT abdomen and pelvis 08/17/2021, 06/27/2017. FINDINGS: Image quality: Good. ABDOMEN: Lung bases: Lung bases are clear. Heart size is normal. Solid organs: Liver and spleen are normal in size and enhancement. Calcified granulomas. Gallbladde r is unremarkable. Biliary system is non dilated. Fatty atrophy of the pancreas.. Right adrenal nodu le measuring approximately 2.1 cm, (), similar to 2017. This most likely represents a benign tristen earle. There may be a small adenoma at the left adrenal gland versus adrenal thickening, similar. Kidn eys demonstrate normal size and enhancement, without hydronephrosis. Peritoneum and bowel: There are dilated loops of small bowel and air-fluid level within the ventral a bdominal wall hernia sac. No discrete transition point is identified. There is a small bowel to small bowel anastomosis. Other loops of small bowel are not dilated. The appendix is not identified. Cecum is malpositioned within the left aspect of the hernia sac. Nodes and vessels: No retroperitoneal or mesenteric adenopathy by size criteria. Aorta and inferior vena cava are normal in size. Miscellaneous: Large ventral midline abdominal wall hernia containing small bowel and colon. The gary ia neck measures 8 cm, (334). Overall the size of the large hernia is similar to 2020. PELVIS: Genitourinary: Bladder wall thickness is normal. Anteverted uterus. Tubal ligation. Miscellaneous: Small fat-containing inguinal hernias. No adenopathy. Bones: No suspicious bony lesions. No vertebral body compression fractures. IMPRESSION: Large ventral abdominal wall hernia containing small bowel and colon is similar in size. Dilated loops of small bowel within the hernia sac and a small bowel to small bowel anastomosis. Thi s is concerning for small bowel obstruction or partial obstruction. A discrete transition point is no t identified. No free fluid in the hernia sac. Reviewed by: Isaac Kraus MD on 11/08/2022 12:31 PM PST Approved by: Isaac Kraus MD on 11/08/2022 12:31 PM PST Station ID: [id number]
[2022-11-08] MEDS ORDERED: iohexoL-300 100 ML VIAL IVP ONE (12:54)
--- NOTE | 2022-11-08 14:00 | CONSULTATION NOTE ---
Surgery Consult - Consult Date Consult Date: 11/08/22 Requesting Provider: Dr. Migue Larson - Chief Complaint Chief Complaint: Ventral hernia with possible partial SBO - Home Meds/Allergies Allergies/Adverse Reactions: Allergies Allergy/AdvReac Type Severity Reaction Status Date / Time No Known Drug Allergies Allergy Verified 07/21/22 09:12 - Vital Signs Vital Signs: Last Vital Signs Temp 97.9 F 11/08/22 13:00 Pulse 71 11/08/22 13:00 Resp 16 11/08/22 13:00 BP 128/71 11/08/22 13:00 Pulse Ox 100 11/08/22 13:00 O2 Flow Rate Intake & Output: Intake & Output 11/05/22 11/06/22 11/07/22 11/08/22 23:59 23:59 23:59 23:59 Intake Total 1000 Balance 1000 - Lab Results Result Diagrams: 11/08/22 10:12 11/08/22 10:12 - Consultation Note Consultation Note: S: Anuradha Colon is a 62 year old female who presents to the ED with 24 hours of nausea, several episodes of emesis, and worsening abdominal pain. Her symptoms started two days ago. She has had similar symptoms in the past due to a large, complicated recurrent ventral hernia. She tells me that the hernia is always bulging through her abdominal wall and yesterday the bulge was much more tense than today but her nausea and vomiting persisted. Her last BM was yesterday. She is unaware of the passage of flatus today. She denies fevers or chills. Anuradha tells me she has had multiple surgical repairs of her ventral hernia, the first using mesh implantation followed by mesh explantation and at least two more primary repairs each of which recurred. She was seen several years ago at [facility] and told that she was not a candidate for an elective hernia repair until she lost weight which she has been unable to do. 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 Since that time she has been asymptomatic until two days ago although she has been evaluated in the clinic periodically for skin changes related to the macerated pannicular epidermis. She denies the use of home medications. She admits to 3-4 ventral hernia repairs, several of which were performed in [place]. She denies the use of home medications and has no allergies to medications. O: VSS, Afeb; Not tachycardic; AAO; Somewhat tearful when telling her past history. HEENT normal Lungs Clear Heart NSR Abd Large partially reducible ventral hernia that is not tender to palpation. Bowel sounds are present over the hernia and in the intra-abdominal cavity. On the inferior aspect of the hernia, the skin is erythematous with multiple small (<1 cm) superficial ulcerations. The skin is macerated and moist with seropurulent exudate. There is no evidence of full thickness skin erosion or fistula formation. Extremities Mild edema bilateral lower extremities. Labs: See above CT scan: Large midline ventral hernia sac that contains both small and large bowel. There are several loops of dilated small bowel in the hernia sac but otherwise the small bowel entering and leaving the hernia sac and within the abdominal cavity appears normal. An anastomotic staple line can be seen in one of the bowel segments within the hernia. Today's images appear similar to those images from last year except for the few segments of dilated small bowel within the hernia. Assessment: 1) Chronic complex ventral hernia with onset of abdominal pain and vomiting. The patient may have a partial small bowel obstruction or perhaps an ileus as there is no evidence of distended small bowel other than the short segment within the hernia sac. There is no clinical, CT, or lab evidence of ischemic bowel at this time. 2) Superobesity (BMI 46.5) Recommendation: 1) Unfortunately, our hospital is full and can not accept in-patients at this time. And given her complex hernia and morbid obesity,she would be best served in a tertiary care center in case her condition deteriorated such that emergency surgery would be required. We have requested that she be placed on a waiting list at /[facility] as they are also over-capacity and can not accept her in immediate transfer at this time. This patient will not do well if she goes home and therefore she will be boarded in our ED until that time that she either improves or a bed becomes available at a Tertiary Referral Center. I have discussed this with our ED staff and with the patient and there is agreement with this plan. While boarded in the ED, she should receive IV maintenance fluids, an NGT should be placed to LIS, IV Dilaudid or MS can be offered for pain control, and the skin maceration should be managed with antifungal powder and gauze to keep the epidermal folds . Depending upon her clinical response to these measures, a gastrografin contrast study may be requested. 2) Surgery will follow while she is boarded. Bryan Chinchilla MD General Surgery Service
[2022-11-08] MEDS ORDERED: NYSTATIN POWDER 15 GM TOP STA (14:57)
--- NOTE | 2022-11-08 15:44 | XRAY Report ---
PROCEDURE: Chest for Line Placement INDICATIONS: NG placement TECHNIQUE: One view of the chest was acquired. COMPARISON: CT abdomen and pelvis earlier today. FINDINGS: Surgical changes and devices: Enteric tube with the tip in the stomach. Lungs and pleura: No pleural effusions or pneumothorax. Lungs are clear. Mediastinum: Mediastinal contours appear normal. Heart size is normal. Bones and chest wall: No suspicious bony lesions. Overlying soft tissues appear unremarkable. IMPRESSION: Enteric tube with the tip in the stomach. No acute cardiopulmonary abnormality. Reviewed by: Isaac Kraus MD on 11/08/2022 3:42 PM PST Approved by: Isaac Kraus MD on 11/08/2022 3:42 PM PST Station ID: [id number]
[2022-11-08] MEDS ORDERED: ONDANSETRON 4 MG/2 ML VIAL IVP PRN (16:33)
[2022-11-08] MEDS ORDERED: MORPHINE 2 MG/ML CARPUJECT IVP PRN (16:34)
[2022-11-08] MEDS ORDERED: KETOROLAC 15 MG/ML VIAL IVP STA (20:39)
[2022-11-08] MEDS ORDERED: LORazepam 2 MG/ML VIAL IVP STA (20:39)
[2022-11-08] MEDS: D5.45NS W/20 MEQ KCL 1,000 ML IV SCH (20:48)
--- NOTE | 2022-11-08 22:37 | ED Physician Documentation ---
ED Addendum - Addendum Addendum: 11/08/22 22:36 D/w Dr. Elizalde, gen surgery . discussed concern for partial SBO - He is recommending against transfer, stating she has chronic ventral hernia and chronic pain related to this. He recommends to manage partial SBO here at [facility] via ng tube / bowel rest/ npo and reevaluate in morning for possible outpatient follow up. 11/09/22 06:00 plan to endorse to incoming daytime ED MD for further management and care
[2022-11-09 04:39] LABS: BASOPHILS % (AUTO) 0.2 %; EOSINOPHILS # (AUTO) 0.1 10^3/uL (0.0-0.7); EOSINOPHILS % (AUTO) 2.5 %; HCT - HEMATOCRIT 44.3 % (37.0-47.0); HGB - HEMOGLOBIN 13.7 g/dL (12.0-16.0); LYMPHOCYTES # (AUTO) 1.6 10^3/uL (1.5-3.5); LYMPHOCYTES % (AUTO) 33.1 %; MEAN CORPUSCULAR HEMOGLOBIN 29.3 pg (27.0-31.0); MEAN CORPUSCULAR HGB CONC 30.9 g/dL (32.0-36.0); MEAN CORPUSCULAR VOLUME 94.9 fL (81.0-99.0); MEAN PLATELET VOLUME 9.4 fL (7.9-10.8); MONOCYTES # (AUTO) 0.3 10^3/uL (0.0-1.0); MONOCYTES % (AUTO) 6.7 %; NEUTROPHILS # (AUTO) 2.8 10^3/uL (1.5-6.6); NEUTROPHILS % (AUTO) 57.3 %; PLT - PLATELET COUNT 190 10^3/uL (130-450); RED BLOOD COUNT 4.67 10^6/uL (4.20-5.40); RED CELL DISTRIBUTION WIDTH 13.6 % (12.0-15.0); WHITE BLOOD COUNT 4.8 x10^3/uL (4.8-10.8)
[2022-11-09 04:49] LABS: CALCIUM 9.9 mg/dL (8.5-10.3); CREATININE 0.9 mg/dL (0.4-1.0); POTASSIUM 4.1 mmol/L (3.5-5.0)
[2022-11-09] MEDS: D5.45NS W/20 MEQ KCL 1,000 ML IV SCH ×2 (05:08→13:16)
--- NOTE | 2022-11-09 07:26 | PROVIDER PROGRESS NOTE ---
Progress Note General Surgery Progress Note S: Comfortable; Still has abdominal discomfort but less; Claims to have passed a little flatus. No nausea or vomiting. Lying in bed watching videos on her mobile device. O: VSS, afeb; AAO; No tachycardia since admission NGT in nares; no output last night. Open and functional Lungs: Clear Heart: NSR Abdomen: Soft; VH soft and non tender. Can easily reduce most of the hernia but she has clinical evidence of loss of domain and it immediately recurs. Bowel sounds are present in the abdominal cavity and within the hernia sac. The lower epidermal erythema is being treated with anti-fungal powder and gauze. Labs: BMP - normal; WBC normal Assessment: 1) Chronic VH with possible SBO - It appears as if the obstruction is either partial and has started to resolve. 2) Pannicular dermal inflammation - ongoing treatment 3) Superobesity Recommendation: 1) Gastrografin contrast study this morning (I have ordered this study). If it demonstrates flow into colon, the NGT may be removed and the patient started on a clear liquid diet. 2) Once an in-patient bed becomes available, she can be admitted for continued care if still needed. Bryan Chinchilla MD General Surgery Service
[2022-11-09] MEDS ORDERED: DIATRIZOATE MEGLU/DIATRIZO SOD 30 ML BOTTLE PO ONE ×2 (07:32→08:55)
[2022-11-09] MEDS ORDERED: KETOROLAC 15 MG/ML VIAL IVP STA (08:40)
--- NOTE | 2022-11-09 08:45 | ED Physician Documentation ---
ED Addendum - Addendum Addendum: 11/09/22 08:43 Patient with partial bowel obstruction in the area of a large ventral hernia. Initial plan was to transfer the patient elsewhere since she is medically complicated. However report is the surgery at [facility] or outlying facility states the patient would be nonoperatively treated there. As such the focus of care was just nonoperative. Dr. Chinchilla was consulted and saw the patient. On rounds this morning Dr. Chinchilla stated he would order a Gastrografin study as the patient was having much less pain today. We may be able to discharge her if clinically improving later, once her movement through the gut has improved. The patient was a awake alert and conversant. She declined any opiate pain medicine. I did offer her another dose of Toradol. She had had some yesterday. She excepted that. 11/09/22 08:45
[2022-11-09] MEDS ORDERED: PANTOPRAZOLE 40 MG VIAL IVP SCH (09:00)
[2022-11-09 12:34] VITALS: BP 104/75
--- NOTE | 2022-11-09 13:04 | XRAY Report ---
PROCEDURE: SBFT Challenge Panel INDICATIONS: OBSTRUCTION COMPARISON: CT of abdomen and pelvis dated 11/08/2022 and 08/17/2021 FINDINGS: KUB: Preprocedural vegetable sorter film demonstrates moderately air distended small bowel loops. No suspicious abdominal calcifications. Visualized solid organ contours appear normal. No suspicious bony abnorm alities. Small bowel: Patient's known large ventral hernia is seen on lateral views. There is slightly delayed transit of Gastrografin contrast in the small bowel loops with contrast reaching the ascending colon within the ventral herniation sac after 3 hours. The small bowel and colon loops are mildly distende d within the herniation sac. No high-grade stricture or extrinsic mass effects are noted. No contrast is noted in distal sigmoid colon or rectum. IMPRESSION: Finding is suggestive of low-grade partial distal small bowel obstruction with slightly delayed contr ast transit time within the small bowel loops. No contrast extravasation or evidence of high-grade di stal small bowel obstruction. Reviewed by: Jan Lindsey MD on 11/09/2022 12:56 PM PST Approved by: Jan Lindsey MD on 11/09/2022 12:56 PM PST Station ID: [id number]
--- NOTE | 2022-11-09 13:33 | PROVIDER PROGRESS NOTE ---
Progress Note General Surgery Progress Note The SB study reveals contrast in the colon within 4-5 hours. She does not have a complete SBO and her partial SBO is resolving. (I have reviewed her images.) I recommend removing the NGT and starting her on clear liquids. If she tolerates this, she can be discharged to home on a clear to full liquid diet for several days, and then advance to her normal diet after 48 hrs. She should follow up with her PCP to initiate a weight reduction program so that she may become a candidate for elective hernia repair. Bryan Chinchilla MD General Surgery Service
--- NOTE | 2022-11-09 15:09 | ED Physician Documentation ---
ED Addendum - Addendum Addendum: 11/09/22 15:[address] Chinchilla ok to dischg home. Dispo, discharge home condition stable.
== END 2022-11-09 16:41 | disposition home or self-care (01) ==
LOC: ED 09:36
DX: K43.9 Ventral hernia without obstruction or gangrene (principal); K56.600 Partial intestinal obstruction, unspecified as to cause; Z20.822 Contact with and (suspected) exposure to COVID-19
CPT/HCPCS: 36415; 74177; 74250; 80048; 80053; 83605; 83690; 85025; 87633; 93005; 96374; 96375; 96376; 99284; 99285; A9270; J2060; Q9963; Q9967